=== PATIENT | female | born 1935 | race Caucasian/White ===

== ENCOUNTER 2022-11-16 19:17 | Emergency (ER) | payer OTHER ==
[~2022-11-16] VITALS: Ht 162.6 cm; Wt 96.2 kg
[2022-11-16 19:17] VITALS: BP_SYST 198
--- NOTE | 2022-11-16 19:25 | NUR ---
Pt placed to ER bed 03, to bedside press manager, report given to BELKYS De La Fuente.
--- NOTE | 2022-11-16 19:52 | NUR ---
placed in gown, pulse ox, b/p, electrodes, xray done at this time
[2022-11-16 19:55] LABS: BASOPHILS # (AUTO) 0.1 K/uL (0.0-0.2); BASOPHILS % (AUTO) 0.8 % (0.0-2.0); EOSINOPHILS # (AUTO) 0.1 K/uL (0.0-0.4); HEMATOCRIT 35.2 % (36-48); LYMPHOCYTES # (AUTO) 1.3 K/uL (1.0-5.5); LYMPHOCYTES % (AUTO) 15.7 % (20.5-51.5); MEAN CORPUSCULAR HEMOGLOBIN 29 pg (27-31); MEAN CORPUSCULAR HGB CONC 34 % (32-36); MEAN CORPUSCULAR VOLUME 86 fL (79.0-98.0); MONOCYTES # (AUTO) 0.7 K/uL (0.0-1.0); MONOCYTES % (AUTO) 8.6 % (1.7-9.3); NEUTROPHILS % (AUTO) 73.9 % (40.0-70.0); PLATELET COUNT (AUTO) 290 K/uL (130-430); RED BLOOD CELL COUNT(AUTO) 4.11 MIL/uL (4.2-6.2); WHITE BLOOD COUNT (AUTO) 8.2 K/uL (4.8-10.8)
[2022-11-16] MEDS ORDERED: cloNIDine HCL 0.1 MG TABLET PO ONE (20:00)
[2022-11-16 20:11] LABS: ANION GAP 9 (5-15); CALCIUM 8.9 mg/dL (8.4-11.0); CHLORIDE 93 mmol/L (98-107); CREATININE 0.91 mg/dL (0.55-1.30); GLUCOSE 110 mg/dL (70-99); UREA NITROGEN, BLOOD 20 mg/dL (8-21)
[2022-11-16 20:18] LABS: ALANINE AMINOTRANSFERASE 23 U/L (12-78); ALBUMIN 3.8 g/dL (3.4-4.8); ASPARTATE AMINOTRANSFERASE 17 U/L (10-37); TOTAL BILIRUBIN 0.5 mg/dL (0.0-1.0)
[2022-11-16] MEDS ORDERED: CLON-433 PO (20:34)
--- NOTE | 2022-11-16 21:00 | NUR ---
pt ambulated to restroom with steady gait with no sob
--- NOTE | 2022-11-16 21:00 | NUR ---
Alexandra montgomery in [facility] - 11/16/22 at 2142 by [id number] pt ambulated to restroom with stae
[2022-11-16 21:04] VITALS: BP_SYST 166
--- NOTE | 2022-11-16 21:39 | NUR ---
daughter at bedside aware of discharge instructionsm stated she i here for sob, educated daughter that her b/p was elevated and her o2 sat is 100%
--- NOTE | 2022-11-16 22:16 | NUR ---
Patient given written and verbal discharge instructions and verbalizes understanding. ER MD discussed with patient the results and treatment provided. Patient in stable condition. ID arm band removed. IV catheter removed intact and dressing applied, no active bleeding. Rx of given. Patient educated on pain management and to follow up with PMD. Pain Scale . Opportunity for questions provided and answered. Medication side effect fact sheet provided.
== END 2022-11-16 21:43 | disposition home or self-care (01) ==
LOC: SED 19:17
DX: I16.0 Hypertensive urgency (principal); R51.9 Headache, unspecified; R07.9 Chest pain, unspecified; I10 Essential (primary) hypertension; Z88.1 Allergy status to other antibiotic agents; Z79.899 Other long term (current) drug therapy
CPT/HCPCS: 36415; 71045; 80053; 83880; 84484; 85025; 93005; 99285